=== PATIENT | male | born 1960 | race Caucasian/White ===

== ENCOUNTER 2024-08-18 10:00 | Outpatient (CLI) | payer MEDICARE, SELFPAY ==
--- NOTE | ~2024-08-18 | CT_ITS ---
EXAMINATION: CT lung screening DATE: 08/18/2024 10:33 INDICATION: NICOTINE DEPENDENCE TECHNIQUE: Computed tomography (CT) of the chest was performed without intravenous contrast. Addition al 3D reconstructions utilizing coronal maximum intensity projection (MIP) were performed. Automated exposure control and iterative reconstruction technique were employed. The dose-length product was 15 1.45 mGy-cm. COMPARISON: 12/18/2016 FINDINGS: Mild emphysema. Large calcified nodule left lower lobe along with calcified left hilar lymph nodes co nsistent with old granulomatous disease. Mild discoid atelectasis in the left lower lobe. No other valadez spicious pulmonary nodules, pneumonia, pulmonary edema or pleural effusion. Heart size is normal. Chr onic focal pericardial calcification in the region of the pulmonary outflow tract. No pericardial eff usion. Aortic valve calcification. Thoracic aorta is normal in caliber. No pathologically enlarged th oracic lymphadenopathy. Cholecystectomy clips the gallbladder fossa. Bilateral cervical ribs. Moderat e thoracic spondylosis. IMPRESSION: 1. Lung-RADS category 1: Negative. Continue annual screening with noncontrast low-dose chest CT in 12 months. Reviewed, dictated and finalized at location B. [facility] [employer] IMPRESSION: 1. Lung-RADS category 1: Negative. Continue annual screening with noncontrast l ow-dose chest CT in 12 months.
== END 2024-08-18 10:01 | disposition home or self-care (01) ==
LOC: ANHIMG 10:07
PROVIDERS: Visit Provider Internal Medicine Pulmonary Disease
DX: Z12.2 Encounter for screening for malignant neoplasm of respiratory organs (principal); Z87.891 Personal history of nicotine dependence
CPT/HCPCS: 71271

== ENCOUNTER 2024-08-22 10:08 | Outpatient (CLI) | payer MEDICARE, SELFPAY ==
--- NOTE | 2024-08-22 14:38 | WPDPFTINT ---
PFT Procedure Performed PFT Procedure Performed Spirometry with Pre/Post Bronchodilator Plethysmography (Lung Vol) Diffusing Cap (DLCO) Flow Vol Loop PFT Interpretation This is a pulmonary function test with pre and post-bronchodilator spirometry, plethysmography and diffusing capacity. The test was performed and results interpreted in accordance with the 2019 and 2005 ATS/ERS Task Force guidelines respectively using the Global Lung Function Initiative-2012 reference equations. Patient demonstrated good effort and cooperation. Reproducibility criteria were met. The quality of the pre bronchodilator spirometry maneuver was Grade A and post bronchodilator spirometry maneuver was Grade A. Findings: Spirometry: There is decreased maximal expiratory airflow at all lung volumes with concave expiratory flow tracing. The contour the inspiratory flow tracing is normal. The pre bronchodilator FVC is 3.02 L, 76% predicted. The pre bronchodilator FEV1 is 1.50 L, 48% predicted. The pre bronchodilator FEV1: FVC ratio is 50%. The post bronchodilator FVC is 2.83 L, representing a 6% decrease. The post bronchodilator FEV1 is 1.50 L, representing no change. The post bronchodilator FEV1: FVC ratio is 53%. Plethysmography: The total lung capacity is 6.39 L, 103% predicted. The functional residual capacity is 3.88 L, 121% predicted. The residual volume is 3.37 L, 163% predicted. The residual volume: Total lung capacity ratio is 53%. Diffusing capacity: The diffusing capacity unadjusted for hemoglobin and carboxyhemoglobin is 15.2, 58% predicted. The diffusing capacity adjusted for alveolar volume is 3.54, 80% predicted. Impression: There is a severe obstructive abnormality. There is no significant improvement after inhaling a single dose of albuterol. The increase in residual volume to total lung volume ratio is consistent with hyperinflation from an obstructive abnormality. The diffusing capacity unadjusted for hemoglobin and carboxyhemoglobin is moderately decreased and normalizes when adjusted for alveolar volume. There are no prior studies for comparison
== END 2024-08-22 10:09 | disposition home or self-care (01) ==
PROVIDERS: Visit Provider Internal Medicine Pulmonary Disease
DX: J44.9 Chronic obstructive pulmonary disease, unspecified (principal); R94.2 Abnormal results of pulmonary function studies
CPT/HCPCS: 94060; 94726; 94729